=== PATIENT | male | born 1980 | race African-American/Black ===

== ENCOUNTER 2024-06-06 11:39 | Emergency (ER) | payer OTHER, SELFPAY ==
[2024-06-06 11:44] VITALS: BP 137/96; PULSE 124; TEMP 36.7; O2SAT 100; BMI 25.0
--- NOTE | 2024-06-06 12:40 | US_ITS ---
[facility] [id number] Patient Name: CANDI GEORGE MRN: [id number] date: 1980 Sex: M Assigned Patient Location: ER Current Patient Location: Accession/Order Number: [id number] Exam Date: 06/06/2024 13:32 Report Date: 06/06/2024 14:22 At the request of: SANJU PERALTA Procedure: US venous doppler LE LT PROCEDURE: US venous doppler LE LT, 06/06/2024 1:32 PM EDT CLINICAL INDICATIONS: Left lower extremity pain, personal history of deep venous thrombosis COMPARISON: None TECHNIQUE: Left lower extremity venous sonogram, grayscale, color and spectral assessment. FINDINGS: Bilateral iliac veins, left common femoral vein, greater saphenous vein, proximal left profunda femoris vein, left femoral vein, left popliteal vein, visualized left greater saphenous vein show no sign of filling defect on grayscale or color-flow assessment. There is compressibility on the imaged segments. Spectral assessment shows spontaneous antegrade venous waveform with normal velocity response to augmentation and respirations. US/US venous doppler LE LT IMPRESSION: 1. No sign of left lower extremity deep venous thrombosis. Electronically authenticated by: KENNETH ZAVALA Date: 06/06/2024 14:22
--- NOTE | 2024-06-06 12:44 | ED_ITS ---
HPI - Extremity Problem General Chief complaint: Extremity Problem, Nontraumatic Stated complaint: Lower Pain Time Seen by Provider: 06/06/24 11:45 Source: patient Mode of arrival: walk-in Limitations: no limitations History of Present Illness HPI Narrative: Pt says he cannot walk or bear weight on left leg due to pain in the left calf. Hx DVT and takes Xarelto daily. Went to Urgent Care in [place] last week and was sent to ED for US left LE - it was negative for DVT. But pain has steadily worsened since then. He does not recall any particular injury but I am active . Says that he cannot work or get around the house because of the pain. Nothing prescribed or taken at home for the pain. No chest pain or shortness of breath. When I asked about the tachycardia noted in triage and on exam he told me I always have a fast HR . Related Data Home Medications ?Medication ?Instructions ?Recorded ?Confirmed atorvastatin 80 mg tablet 80 mg PO DAILY 06/06/24 06/06/24 carvedilol 3.125 mg tablet 6.25 mg PO BID 06/06/24 06/06/24 famotidine 20 mg tablet 20 mg PO BID 06/06/24 06/06/24 furosemide 20 mg tablet 20 mg PO Q12H 06/06/24 06/06/24 hydroxyzine HCl 10 mg tablet 10 mg PO PRN PRN anxiety 06/06/24 06/06/24 rivaroxaban 20 mg tablet (Xarelto) 20 mg PO DAILY 06/06/24 06/06/24 sacubitril 24 mg-valsartan 26 mg 1 tab PO DAILY 06/06/24 06/06/24 tablet (Entresto) spironolactone 25 mg tablet 25 mg PO DAILY 06/06/24 06/06/24 Previous Rx's ?Medication ?Instructions ?Recorded methocarbamol 750 mg tablet 750 mg PO Q6H PRN pain #30 tabs 06/06/24 Allergies Allergy/AdvReac Type Severity Reaction Status Date / Time No Known Drug Allergies Allergy Verified 06/06/24 11:44 Exam Narrative Exam Narrative: Nurses notes and vital signs reviewed and patient is not hypoxic. afebrile General: Well-appearing and in no apparent distress. Skin: Warm, dry, no pallor noted. No rash or other skin change to left LE. Eye: Pupils are equal, round and EOMI. No scleral icterus. Cardiovascular: tachycardia. Respiratory: No accessory muscle use or respiratory distress. Lungs are clear to auscultation, no wheezing, rales or rhonchi Musculoskeletal: normal ROM, no popliteal tenderness, no lower extremity edema/swelling. Tenderness throughout the left calf with some muscular tightness but no palpable mass - there is a punctate area of fullness that is very tender to the touch without erythema or skin change. Neurological: A&O x4. No cranial nerve dysfunction observed. No truncal ataxia. Moves all extremities. Sensation intact. Psychiatric: Cooperative and interactive. Normal mood and affect. Constitutional Vital Signs, click to edit/add: Last Vital Signs Temp 98.0 F 06/06/24 11:44 Pulse 105 H 06/06/24 13:01 Resp 18 06/06/24 13:01 BP 130/99 H 06/06/24 13:01 Pulse Ox 99 06/06/24 13:01 O2 Del Method Room Air 06/06/24 11:44 Course Vital Signs Vital signs: Vital Signs Temperature 98.0 F 06/06/24 11:44 Pulse Rate 124 H 06/06/24 11:44 Respiratory Rate 18 06/06/24 11:44 Blood Pressure 137/96 H 06/06/24 11:44 Pulse Oximetry 100 06/06/24 11:44 Oxygen Delivery Method Room Air 06/06/24 11:44 Temperature 98.0 F 06/06/24 11:44 Pulse Rate 105 H 06/06/24 13:01 Respiratory Rate 18 06/06/24 13:01 Blood Pressure 130/99 H 06/06/24 13:01 Pulse Oximetry 99 06/06/24 13:01 Oxygen Delivery Method Room Air 06/06/24 11:44 MDM - Extremity (Nontraumatic) MDM Narrative Medical decision making narrative: Patient with history of DVT who is currently taking Xarelto presents with worsening pain in the left calf. He recently had an Ultrasound of this leg that was negative for DVT, but he has a focal area of tenderness and the pain is worsened so he is concerned that he may have developed something in the interim. He denies any fall or injury. His exam is consistent with a muscular strain of the calf with some spasming. He was sent for left lower extremity ultrasound and today's visit. No indication for xrays or ct due to lack of trauma and no bony tenderness or joint involvement on exam. US negative for DVT and result explained to patient ED nurse applied yesenia wrap to patient's left calf and he was given crutches to assist with ambulation and limit left LE weight bearing. He was referred to his PCP for follow up. Discharge Plan Discharge Stand Alone Forms: Portal Instructions Chief Complaint: Extremity Problem, Nontraumatic Clinical Impression: Left leg pain, Strain of left calf muscle Patient Disposition: Home, Self-Care Time of Disposition Decision: 14:06 Prescriptions / Home Meds: New methocarbamol 750 mg tablet 750 mg PO Q6H PRN (Reason: pain) Qty: 30 0RF No Action atorvastatin 80 mg tablet 80 mg PO DAILY carvedilol 3.125 mg tablet 6.25 mg PO BID famotidine 20 mg tablet 20 mg PO BID furosemide 20 mg tablet 20 mg PO Q12H hydroxyzine HCl 10 mg tablet 10 mg PO PRN PRN (Reason: anxiety) Xarelto 20 mg tablet 20 mg PO DAILY Entresto 24-26 mg tablet 1 tab PO DAILY spironolactone 25 mg tablet 25 mg PO DAILY Print Language: Frisian Instructions: Muscle Strain (ED), Leg Pain (ED) Referrals: Physician,Non-Staff, MD [Primary Care Provider] - 1 week
[2024-06-06 13:01] VITALS: BP 130/99; PULSE 105; O2SAT 99
[2024-06-06] MEDS: METHOCARBAMOL 500 MG TABLET 1000 MG PO (14:08)
== END 2024-06-06 14:18 | disposition home or self-care (01) ==
PROVIDERS: Emergency Provider Emergency Medicine
DX: S86.812A Strain of other muscle(s) and tendon(s) at lower leg level, left leg, initial encounter (principal); M79.662 Pain in left lower leg; X58.XXXA Exposure to other specified factors, initial encounter; Z86.718 Personal history of other venous thrombosis and embolism; Z79.01 Long term (current) use of anticoagulants
CPT/HCPCS: 93971; 99285